=== PATIENT | female | born 1950 | race Caucasian/White ===

== ENCOUNTER 2017-11-02 16:23 | Outpatient (CLI) | payer MEDICARE, BC | END 2017-11-02 16:24 | disposition home or self-care (01) | LOC: BICMAMMO 16:23 | PROVIDERS: ATTEND Specialist | DX: Z12.31 Encounter for screening mammogram for malignant neoplasm of breast (principal); R92.1 Mammographic calcification found on diagnostic imaging of breast | CPT/HCPCS: 77063; 77067 ==

== ENCOUNTER 2020-01-10 10:20 | Outpatient (CLI) | payer MEDICARE, BC ==
--- NOTE | 2020-01-10 11:16 | MMO ---
Bilateral MAMMO Bilat Diag [facility]. CLINICAL HISTORY: Patient is 69 years old and is seen for diagnostic exam and non-bloody discharge in the right breast. The patient has no family history of breast cancer. The patient has no personal history of cancer. VIEWS: The views performed were: bilateral craniocaudal with tomosynthesis; bilateral mediolateral oblique with tomosynthesis; and bilateral mediolateral with tomosynthesis. FILMS COMPARED: The present examination has been compared to prior imaging studies performed at [facility] on 05/22/2015, 08/18/2016, 11/02/2017 and 01/10/2020. This study has been interpreted with the assistance of computer-aided detection. MAMMOGRAM FINDINGS: There are scattered fibroglandular densities. There is no radiographic abnormality in the region of the nipple discharge in the right breast. No sonographic abnormality seen in the retroareolar regions of the right and left breast. Small cyst is seen in the retroareolar right breast measuring 4 mm. There are no suspicious masses, suspicious calcifications, or new areas of architectural distortion. IMPRESSION: THERE IS NO MAMMOGRAPHIC EVIDENCE OF MALIGNANCY. NEGATIVE IMAGING SHOULD NEVER DETER BIOPSY IF FINDINGS ON CLINICAL EXAM ARE SUSPICIOUS. WILL REFER THIS PATIENT BACK TO THE ORDERING CLINICIAN. IF CLINICAL SUSPCION SHOULD PERSIST, BREAST MR WITH AND WITHOUT CONTRAST IS RECOMMENDED. THE PATIENT WAS INFORMED OF THE EXAM RESULTS. A ROUTINE FOLLOW-UP MAMMOGRAM IN 1 YEAR IS RECOMMENDED. THE RESULTS OF THIS EXAM WERE SENT TO THE PATIENT. ACR BI-RADS Category 2 - Benign finding MAMMOGRAPHY NOTE: 1. A negative mammogram report should not delay a biopsy if a dominant of clinically suspicious mass is present. 2. Approximately 10% to 15% of breast cancers are not detected by mammography. 3. Adenosis and dense breasts may obscure an underlying neoplasm. Reported by: EZRA CABALLERO MD Electonically Signed: [id number]
--- NOTE | 2020-01-10 11:40 | ULT ---
RIGHT BREAST DIAGNOSTIC ULTRASOUND: INDICATION: Milky discharge from the right breast for 3 weeks. COMPARISON: Diagnostic mammogram of both breasts on 01/10/2020 and a screening mammographic evaluation of both [facility] [address] from 11/02/2017 and 08/18/2016. FINDINGS: Corresponding to a persistent small cyst within the retroareolar right breast seen on prior screening mammographic evaluations of the right breast is a 4 mm anechoic cyst with posterior acoustic wall en hancement. No ductal dilatation is noted. No retroareolar mass is seen within the right and left br east regions. IMPRESSION: BIRADS category 2 - benign. No suspicious retroareolar lesion identified. An incidental simple cyst is seen within the retroareolar right breast. Will refer the patient back to the ordering clinician . Negative imaging should never deter biopsy if findings on clinical examination are suspicious. If the unilateral discharge persists, further evaluation with breast MRI with and without contrast may be helpful for additional characterization. The patient was counseled on the findings prior to leavi ng the breast center. CODE CR
== END 2020-01-10 10:21 | disposition home or self-care (01) ==
LOC: BICMAMMO 10:20
PROVIDERS: ATTEND Family Medicine Sports Medicine
DX: N64.52 Nipple discharge (principal); N60.01 Solitary cyst of right breast
CPT/HCPCS: 76642; 77066; G0279

== ENCOUNTER 2020-04-14 09:15 | Outpatient (CLI) | payer MEDICARE, BC ==
--- NOTE | 2020-04-14 09:49 | BD ---
DEXA BONE DENSITOMETRY: (Dual energy x-ray absorptiometry) DATE: 04/14/2020 HISTORY: 69-year old white female for age-related, post-menopausal, osteoporosis screening. weight: 150 lbs height: 64 in. Age of menopause: 48 COMPARISON: None available. FINDINGS: The bone mineral density (BMD) is given in grams per square centimeter (g/cm2): LUMBAR SPINE: BMD (g/cm^2) T score Z score L1: 0.967 -0.2 1.7 L2: 0.949 -0.7 1.3 L3: 0.993 -0.8 1.4 L4: 0.979 -0.7 1.5 Total: 0.972 -0.7 1.4 HIP: BMD (g/cm^2) T score Z score Femoral neck: 0.659 -1.7 0.1 Total: 0.911 -0.3 1.2 IMPRESSION: 1.) The mean bone mineral density of the lumbar spine is normal. Fracture risk is not increased. 2) The bone mineral density of the femoral neck is osteopenic. Fracture risk is increased.
== END 2020-04-14 09:16 | disposition home or self-care (01) ==
LOC: BICMAMMO 09:15
PROVIDERS: ATTEND Family Medicine Sports Medicine
DX: Z13.820 Encounter for screening for osteoporosis (principal); Z78.0 Asymptomatic menopausal state; M85.859 Other specified disorders of bone density and structure, unspecified thigh
CPT/HCPCS: 77080

== ENCOUNTER 2020-09-01 07:53 | Outpatient (CLI) | payer MEDICARE, BC ==
--- NOTE | 2020-09-01 10:07 | MRI ---
MRI ABDOMEN WITH AND WITHOUT IV CONTRAST: HISTORY: Abdominal pain, elevated LFTs. FINDINGS: The liver, spleen, pancreas, adrenal glands, and gallbladder appear normal. No hepatic mass or abnor mal biliary or pancreatic ductal dilatation is seen. There are bilateral renal cysts with multiple l eft pararenal cysts and a 3.5 cm right cortical cyst. No free fluid or lymphadenopathy is seen. The bone marrow signal is normal. IMPRESSION: 1. Renal cysts. 2. No evidence of hepatic mass or biliary obstruction. POS: OFF
[2020-09-01] MEDS ORDERED: Magnevist 469MG/ML 20 ML VIAL ONE (13:13)
== END 2020-09-01 07:54 | disposition home or self-care (01) ==
LOC: BICMRI 07:53
PROVIDERS: ATTEND Internal Medicine Gastroenterology
DX: R10.13 Epigastric pain (principal); N28.1 Cyst of kidney, acquired
CPT/HCPCS: 74183; A9579

== ENCOUNTER 2020-12-22 13:18 | Outpatient (CLI) | payer MEDICARE, BC | END 2020-12-22 13:19 | disposition home or self-care (01) | LOC: BICCT 13:18 | PROVIDERS: ATTEND Family Medicine Sports Medicine | DX: Z12.2 Encounter for screening for malignant neoplasm of respiratory organs (principal); Z87.891 Personal history of nicotine dependence; R91.8 Other nonspecific abnormal finding of lung field; I70.0 Atherosclerosis of aorta; N28.89 Other specified disorders of kidney and ureter; M47.814 Spondylosis without myelopathy or radiculopathy, thoracic region | CPT/HCPCS: 71271 ==

== ENCOUNTER 2021-05-24 10:07 | Outpatient (CLI) | payer MEDICARE, BC | END 2021-05-24 10:08 | disposition home or self-care (01) | LOC: BICMAMMO 10:07 | PROVIDERS: ATTEND Family Medicine Sports Medicine | DX: Z12.31 Encounter for screening mammogram for malignant neoplasm of breast (principal) | CPT/HCPCS: 77063; 77067 ==

== ENCOUNTER 2021-06-28 10:35 | Outpatient (CLI) | payer MEDICARE, BC | END 2021-06-28 10:36 | disposition home or self-care (01) | LOC: BICCT 10:35 | PROVIDERS: ATTEND Family Medicine Sports Medicine | DX: Z12.2 Encounter for screening for malignant neoplasm of respiratory organs (principal); R91.8 Other nonspecific abnormal finding of lung field; S22.009A Unspecified fracture of unspecified thoracic vertebra, initial encounter for closed fracture; N28.89 Other specified disorders of kidney and ureter; Z87.891 Personal history of nicotine dependence | CPT/HCPCS: 71271 ==

== ENCOUNTER 2022-11-07 10:05 | Outpatient (CLI) | payer MEDICARE, BC | END 2022-11-07 10:06 | disposition home or self-care (01) | LOC: BICCT 10:05 | PROVIDERS: ATTEND Family Medicine Sports Medicine | DX: Z12.31 Encounter for screening mammogram for malignant neoplasm of breast (principal); Z12.2 Encounter for screening for malignant neoplasm of respiratory organs; Z13.820 Encounter for screening for osteoporosis; Z78.0 Asymptomatic menopausal state; M85.851 Other specified disorders of bone density and structure, right thigh; M85.852 Other specified disorders of bone density and structure, left thigh; Z87.891 Personal history of nicotine dependence | CPT/HCPCS: 71271; 77063; 77067; 77080 ==

== ENCOUNTER 2023-04-17 10:00 | Outpatient (CLI) | payer MEDICARE, BC ==
[2023-04-17 11:40] LABS: #Basophils 0.1 10x3/uL (0.0-0.2); #Eosinphils 0.2 10x3/uL (0.0-0.5); #Monocytes 0.5 10x3/uL (0.0-1.1); #Neutrophils 3.2 10x3/uL (1.5-8.4); %Basophils 1.2 % (0.0-2.0); %Eosinophils 3.7 % (0.0-6.0); %Lymphocytes 27.6 % (18.0-47.0); %Monocytes 9.3 % (0.0-10.0); %Neutrophils 57.8 % (40.0-75.0); Hemoglobin 13.6 g/dL (12.0-15.5); Mean Corpuscular HGB CONC 32.5 g/dL (32.0-36.0); Mean Corpuscular Hemoglobin 30.2 pg (27.0-33.0); Mean Corpuscular Volume 92.7 fl (81.6-98.3); Mean Platelet Volume 9.7 fl (7.4-10.4); Platelet Count 285 10x3/uL (150-450); RBC Distribution Width 13.4 % (11.5-14.5); Red Blood Cell (RBC) Count 4.51 10x6/uL (3.90-5.03); White Blood Cell (WBC) Count 5.6 10x3/uL (3.5-10.5)
[2023-04-17 13:05] LABS: Anion Gap 12 mmol/L (10-20); BUN (Urea Nitrogen) 14 mg/dL (9.8-20.1); Calc. Creatinine Clearance 0 mL/min (70-130); Calcium 9.3 mg/dL (7.8-10.44); Carbon Dioxide 28 mmol/L (23-31); Chloride 104 mmol/L (98-107); Estimated GFR 67; Glucose 87 mg/dL (83-110); Potassium 4.4 mmol/L (3.5-5.1); Sodium 140 mmol/L (136-145)
== END 2023-04-17 10:01 | disposition home or self-care (01) ==
LOC: LABBT 10:00
PROVIDERS: ATTEND Orthopaedic Surgery
DX: Z01.818 Encounter for other preprocedural examination (principal); M75.101 Unspecified rotator cuff tear or rupture of right shoulder, not specified as traumatic
CPT/HCPCS: 71046; 80048; 85025; 93005; 93010

== ENCOUNTER 2023-04-19 05:54 | Day surgery (SDC) | payer MEDICARE, BC ==
[2023-04-17 10:44] VITALS: BMI 25.4
[2023-04-19] MEDS ORDERED: Bupivacaine HCl 0.5%/Epinephrine 1:200,000/PF 30 ml Vial ONE (06:27)
[2023-04-19] MEDS ORDERED: EPINEPHrine 1 MG/ML AMP ONE (06:29)
[2023-04-19] MEDS ORDERED: Lidocaine 1% (PF) 30 ML VIAL ONE (06:29)
[2023-04-19] MEDS ORDERED: fentaNYL 50 mcg/mL 1 mL Vial ONE ×2 (06:45→07:28)
[2023-04-19] MEDS ORDERED: Ropivacaine 0.5% HCl/PF (150 MG/30 ML VIAL) ONE (06:45)
[2023-04-19] MEDS ORDERED: Midazolam HCl 2 mg/2 ml Vial ONE (06:45)
[2023-04-19] MEDS ORDERED: Sodium Chloride 0.9% 100 ML ONE (07:10)
[2023-04-19] MEDS ORDERED: CEFAZOLIN 2 GM VIAL ONE (07:10)
[2023-04-19] MEDS ORDERED: Promethazine HCl 25 MG/ML VIAL IM PRN (08:00)
[2023-04-19] MEDS ORDERED: HYDROcodone/Acetaminophen 10/325 mg Tablet PO PRN ×2 (08:00)
[2023-04-19] MEDS ORDERED: Ondansetron PF 4 MG/2 ML Vial IVP PRN (08:00)
[2023-04-19] MEDS ORDERED: traMADol HCl 50 MG TAB PO PRN ×2 (08:00)
[2023-04-19] MEDS ORDERED: Ropivacaine 0.2% 550 ML 550 ML NERVE BLCK SCH (08:00)
[2023-04-19] MEDS ORDERED: Zolpidem Tartrate 5 MG TAB PO PRN (08:00)
[2023-04-19] MEDS ORDERED: Ondansetron PF 4 MG/2 ML Vial ONE ×2 (08:03→10:06)
[2023-04-19] MEDS ORDERED: Metoclopramide HCl 10 MG/2 ML VIAL ONE (08:03)
[2023-04-19] MEDS ORDERED: NEOSTIGMINE 3 MG/3 ML SYR 3 MG/3 ML SYRINGE ONE (08:03)
[2023-04-19] MEDS ORDERED: Glycopyrrolate 0.2 MG/ML 5 ML SYRINGE ONE (08:03)
[2023-04-19] MEDS ORDERED: Rocuronium Bromide 10 MG/ML (10ML VIAL) ONE (08:03)
[2023-04-19] MEDS ORDERED: PROPOFOL 200 MG/20 ML VIAL ONE (08:03)
[2023-04-19] MEDS ORDERED: Ropivacaine 0.2% HCl/PF 20 ML ONE (08:05)
[2023-04-19] MEDS ORDERED: Promethazine HCl 25 MG/ML VIAL ONE ×2 (10:06→11:59)
== END 2023-04-19 13:50 | disposition home or self-care (01) ==
LOC: SDC 05:54
PROVIDERS: ATTEND Orthopaedic Surgery
PROC: 0RNJ4ZZ Release Right Shoulder Joint, Percutaneous Endoscopic Approach (ICD-10-PCS; principal; 2023-04-19)
PROC: 0LS30ZZ Reposition Right Upper Arm Tendon, Open Approach (ICD-10-PCS; 2023-04-19)
DX: M75.101 Unspecified rotator cuff tear or rupture of right shoulder, not specified as traumatic (principal); M75.41 Impingement syndrome of right shoulder; M75.22 Bicipital tendinitis, left shoulder; F32.A Depression, unspecified; E78.5 Hyperlipidemia, unspecified; K21.9 Gastro-esophageal reflux disease without esophagitis; Z90.49 Acquired absence of other specified parts of digestive tract; Z98.49 Cataract extraction status, unspecified eye; Z87.891 Personal history of nicotine dependence; Z91.041 Radiographic dye allergy status; Z88.5 Allergy status to narcotic agent; Z79.899 Other long term (current) drug therapy
CPT/HCPCS: 23430; 29826; 29827; A4306; J3010; C1713; J0171; J2001; J2250; J2405; J2550; J2704; J2765; J2795; J3490